=== PATIENT | female | born 1990 | race Two or more races ===

== ENCOUNTER 2023-02-18 13:04 | Outpatient (REF) | payer MEDICAID, SELFPAY | END 2023-02-18 13:05 | disposition home or self-care (01) | LOC: HO.NEURO 13:04 | PROVIDERS: Visit Provider Hospitalist | DX: Z13.89 Encounter for screening for other disorder (principal) | CPT/HCPCS: 95708 ==

== ENCOUNTER 2023-03-25 12:15 | Outpatient (REF) | payer MEDICAID, SELFPAY ==
--- NOTE | 2023-03-25 | EEG_ITS ---
PROCEDURE: 24-hour ambulatory EEG. FINDINGS: The waking background activity consists of low-voltage fast frequencies seen diffusely intermixed with a low-voltage 10-hertz posterior alpha frequency posteriorly. No drowsy or sleep states are noted. Entire 24 hours were not recorded. A total of 146 minutes recording was reviewed. The patient has no notifications. No focal, lateralizing or paroxysmal discharges were seen. IMPRESSION: This limited waking segment of a 24-hour EEG is within normal limits. Due to technical reasons, the entire 24 hours were not recorded. If seizure disorder is strongly suspected, a followup 24-hour ambulatory EEG is recommended. MD DC Marion/JAKE / [id number]
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
== END 2023-03-25 12:16 | disposition home or self-care (01) ==
LOC: HO.NEURO 12:15
PROVIDERS: Visit Provider Hospitalist
DX: S42.124D Nondisplaced fracture of acromial process, right shoulder, subsequent encounter for fracture with routine healing (principal); G40.909 Epilepsy, unspecified, not intractable, without status epilepticus
CPT/HCPCS: 73000; 73030; 95708

== ENCOUNTER 2023-08-14 10:19 | Outpatient (REF) | payer MEDICAID, SELFPAY ==
[2023-08-20 04:29] LABS: HPV 16 RNA NOT DETECTED (NOT DETECTED); HPV mRNA E6/E7 rflx Detected (Not Detected)
== END 2023-08-14 10:20 | disposition home or self-care (01) ==
LOC: HO.LAB 10:19
PROVIDERS: Visit Provider Advanced Practice Midwife
DX: Z01.419 Encounter for gynecological examination (general) (routine) without abnormal findings (principal); N90.810 Female genital mutilation status, unspecified; Z11.3 Encounter for screening for infections with a predominantly sexual mode of transmission; Z20.2 Contact with and (suspected) exposure to infections with a predominantly sexual mode of transmission
CPT/HCPCS: 0353U; 87480; 87510; 87624; 87625; 87660; 88142; 99385

== ENCOUNTER 2023-08-14 10:19 | Outpatient (AMB) | payer MEDICAID, SELFPAY ==
[2023-08-14 10:40] VITALS: BP 118/70; BMI 41.2
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
== END 2023-08-14 11:47 | disposition home or self-care (01) ==
LOC: HO.HWSM 10:19
PROVIDERS: Visit Provider Advanced Practice Midwife
DX: Z01.419 Encounter for gynecological examination (general) (routine) without abnormal findings (principal); N90.810 Female genital mutilation status, unspecified; Z12.4 Encounter for screening for malignant neoplasm of cervix; Z11.3 Encounter for screening for infections with a predominantly sexual mode of transmission
CPT/HCPCS: 99385

== ENCOUNTER 2023-08-15 08:58 | Outpatient (AMB) | payer MEDICAID, SELFPAY ==
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
== END 2023-08-15 09:32 | disposition home or self-care (01) ==
PROVIDERS: Visit Provider Physician Assistant
DX: M79.18 Myalgia, other site (principal)
CPT/HCPCS: 99203

== ENCOUNTER → 2023-08-15 08:58 | Outpatient (BNVA) | payer MEDICAID, SELFPAY | PROVIDERS: Visit Provider Physician Assistant | DX: M79.18 Myalgia, other site (principal) | CPT/HCPCS: 99212 ==

== ENCOUNTER 2023-09-10 10:07 | Outpatient (AMB) | payer MEDICAID, SELFPAY ==
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
== END 2023-09-10 11:32 | disposition home or self-care (01) ==
PROVIDERS: Visit Provider Physical Medicine & Rehabilitation
DX: M79.18 Myalgia, other site (principal); M25.511 Pain in right shoulder
CPT/HCPCS: 99204

== ENCOUNTER → 2023-09-10 10:07 | Outpatient (BNVA) | payer MEDICAID, SELFPAY | PROVIDERS: Visit Provider Physical Medicine & Rehabilitation | DX: M79.18 Myalgia, other site (principal); M25.511 Pain in right shoulder | CPT/HCPCS: 99202 ==

== ENCOUNTER 2024-07-16 10:51 | Outpatient (AMB) | payer MEDICAID, SELFPAY ==
--- NOTE | 2024-07-16 10:54 | MHC.OFFVIS ---
Intake Visit Reasons: New prob - RT ankle sprain, DOI 06/28/24 Intake Note: Dean is a 33 year old female who presents today for a evaluation of her right ankle sprain, DOI 06/29/24. Patient reports slip and fall in her room at night. Patient was given a walking boot and crutches, however patient isn't wearing or using them. She states that her right ankle feels a bit better today. She mentions that she has been putting a little bit of weight on her right side which causes her some sharp pain. Allergies No Known Allergies Allergy (Verified 07/16/24 11:43) HPI HPI New prob - RT ankle sprain, DOI 06/28/24: Details: 33-year-old female who presents in the office today for an evaluation of right ankle sprain. The patient stated she presented to the ED in [place] for her right ankle sprain which occurred on 06/28/24. She was given a walking boot and crutches. While in the office today, the patient reports a slip and fall in her room at night. She mentions her right ankle pain is mildly improved. She was given a walking boot and crutches; however, she is not using them. She reports experiencing sharp pain when she puts some weight on her right side. [facility] Medical History (Updated 07/16/24 @ 12:01 by Karly Domingo) Alcohol dependence Delusional disorder Amenorrhea Hidradenitis Uterine scar from previous surgery 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 Depression Nondisplaced apophyseal fracture of femur Obesity Insomnia Constipation Anxiety disorder Brain injury Female Reproductive History Menstrual Age of Menarche: 11 Review of Systems Const All systems reviewed & are unremarkable except as noted in HPI and below Physical Exam Const General: cooperative, healthy appearing and no acute distress Resp Effort & Inspection: normal respiratory effort and able to speak in complete sentences Cardio Rate: regular rate Peripheral pulses: Peripheral pulses 2+ throughout GI Palpation (GI): Soft to palpation Skin Lesions: no lesions Rashes: no rashes Extrem Other: Right ankle: Normal to inspection. No ecchymosis, erythema, or edema. The patient is able to demonstrate dorsiflexion, plantar flexion, pronation and supination. Negative anterior drawer. Sensation intact. Pedal pulse intact. Assessment & Plan Assessment & Plan (1) Right ankle sprain: Code(s): S93.401A - Sprain of unspecified ligament of right ankle, initial encounter Category: Medical Plan Ms. Clements is a 33-year-old female who presents in the office today for an evaluation of right ankle sprain. The patient stated she presented to the ED in [place] for her right ankle sprain which occurred on 06/28/24. She was given a walking boot and crutches. While in the office today, the patient reports a slip and fall in her room at night. She mentions her right ankle pain is mildly improved. She was given a walking boot and crutches; however, she is not using them. She reports experiencing sharp pain when she puts some weight on her right side. The patient was referred to physical therapy to work on range of motion, strengthening and gait training. Follow-up will be PRN, or sooner if needed. X-rays of the right ankle, which were obtained while in the office today and were reviewed by me, Pham Hayden PA-C, revealed: No acute fracture or dislocation. Patient Instructions: Scribed by Karly Domingo, electromedical equipment repairer, for Pham Hayden PA-C on 07/16/24 at 12:10 pm EST. Coding Level of Care Code Est Pt Level 3 (63817) Diagnoses Right ankle sprain S93.401A
== END 2024-07-16 11:56 | disposition home or self-care (01) ==
PROVIDERS: Visit Provider Physician Assistant
DX: S93.401A Sprain of unspecified ligament of right ankle, initial encounter (principal)
CPT/HCPCS: 99213

== ENCOUNTER 2024-07-16 11:23 | Outpatient (REF) | payer MEDICAID, SELFPAY ==
--- NOTE | ~2024-07-16 | XR_ITS ---
EXAMINATION: XR RIGHT ANKLE CLINICAL INFORMATION: Pain in unspecified ankle and joints of unspecified foot M25.579. COMPARISON: None available TECHNIQUE: AP, lateral, and mortise views of the right ankle. FINDINGS: No fracture. Alignment is anatomic. No erosions. Joint spaces are maintained. Soft tissues are normal. Accessory ossicle near medial malleolus. Cortical irregularity likely an old healed distal fibular fracture. XR/XR ankle RT min 3V IMPRESSION: 1. No acute fracture or dislocation. 2. Cortical irregularity likely due to an old healed distal fibular fracture. Electronically signed by: Pearl Green MD 08/11/2024 09:18 PM SAMANTH[facility] LARSON
--- NOTE | ~2024-07-16 | XR_ITS ---
EXAMINATION: XR LEFT ANKLE CLINICAL INFORMATION: Pain in unspecified ankle and joints of unspecified foot M25.579. COMPARISON: None available TECHNIQUE: AP, lateral, and mortise views of the left ankle. FINDINGS: No fracture. Alignment is anatomic. No erosions. Joint spaces are maintained. Soft tissues are normal. XR/XR ankle LT min 3V IMPRESSION: Normal left ankle. Electronically signed by: Phani Steen MD 08/02/2024 07:46 AM SAMANTHA
== END 2024-07-16 11:24 | disposition home or self-care (01) ==
LOC: HO.HOSX 11:23
PROVIDERS: Visit Provider Physician Assistant
DX: S93.401A Sprain of unspecified ligament of right ankle, initial encounter (principal); M25.579 Pain in unspecified ankle and joints of unspecified foot
CPT/HCPCS: 73610; 99212

== ENCOUNTER 2024-12-24 13:11 | Outpatient (AMB) | payer MEDICAID, SELFPAY ==
--- OUTSIDE RECORDS SUMMARY | 2024-12-24 13:14 | XMS_ITS | Clinical Summary ---
Author Organization [employer] Address [address] [facility] [address] [place] [address] Care Team Providers Care Tailing Machine Operator Name Role Phone Unavailable Primary Care Provider Unavailabl e Allergies No known active allergies Medications atorvastatin (Lipitor) 10 MG tablet Take 10 mg by mouth in the morning. Active acetaminophen (Tylenol) 325 MG tablet Take by mouth. Active sodium phosphate (Fleet) 3.5-9.5 GM/59ML enema Insert into the rectum. Active OLANZapine-FLUo xetine (Symbyax) 12-25 MG capsule Take 1 capsule by mouth in the evening. Active metoprolol tartrate (Lopressor) 25 MG tablet Take by mouth 2 times daily. Active omeprazole (PriLOSEC) [address] capsule Take 20 mg by mouth before breakfast. Do not crush or chew. Active ondansetron (Zofran) 4 MG tablet Take by mouth. Active Social History Tobacco Use Types Packs/Day Years Used Date Smoking Tobacco: Never Assessed Comments Unknown Sex and Gender Information Value Date Recorded Sex Assigned at Female 05/21/2023 8:51 AM EDT Legal Sex Female 8:48 AM EDT Gender Identity Female 05/21/2023 8:51 AM EDT Sexual Orientation Choose not to disclose 2022 8:51 AM EDT Plan of Treatment Health Maintenance Due Date Last Done Comments Dental Oral Exam 1989 Dental Prophylaxis 1989 Dental X-Ray: Full Mouth 1989 Depression Screening 1989 HIV Screening 1989 SDOH Screening 1989 Alcohol/Substance Use Screening 2001 Tobacco Screening 2001 Family Planning (PISQ) 2004 Hepatitis C Screening 2007 DTaP/Tdap/Td Vaccines (1 - Tdap) 2008 Hepatitis B Vaccines (1 of 3 - 19+ 3-dose series) 2008 Pap Smear 2010 Cervical Cancer Screening 2019 HPV/Cotest 2019 COVID-19 Vaccine ( - 2023-2 5 season) 2024 Influenza Vaccine (#1) 2024 Dental X-Ray: Bitewings 05/22/2024 05/21/2023 Zoster Vaccines (1 of 2) 2039 RSV Patients and Pa tients Aged 60 years or older (1 - 1-dose 75+ series) 2064 HIB Vaccines Aged Out No longer eligi ble based on patient's age to complete this topic HPV Vaccines Aged Out No longer eligi ble based on patient's age to complete this topic Hepatitis A Vaccines Aged Out No long er eligible based on patient's age to complete this topic IPV Vaccines Aged Out No longer eligi ble based on patient's age to complete this topic Meningococcal B Vaccine Aged Out No l onger eligible based on patient's age to complete this topic Meningococcal Vaccine Aged Out No lucho richie eligible based on patient's age to complete this topic Pneumococcal Vaccine: Pediat rics (0 to 5 Years) and At-Risk Patients (6 to 49) Years) Aged Out No longer elig ible based on patient's age to complete this topic RSV under 20 months Aged Out No longe r eligible based on patient's age to complete this topic Rotavirus Vaccines Aged Out No longer eligible based on patient's age to complete this topic Procedures Procedure Name Priority Date/Time Associated Diagnosis Comments BITEWING - SINGLE RADIOGRAPHIC IMAGE Routine 05/21/2023 1:00 PM EDT from Last 3 Months or Most Recently Relevant to Health Maintenance Insurance [facility] MEDICAID STAND ADULT
--- OUTSIDE RECORDS SUMMARY | 2024-12-24 13:14 | XMS_ITS | Encounter Summary ---
Author Organization [employer] Address [address] [place] [address] Care Team Providers Care Chef Kitchen Manager Name Role Phone Unavailable Primary Care Provider Unavailabl e Encounter Details Date Type Department Care Team (Late st Contact Info) Description 12/24/2024 Lab Requisition [facility] Lab [address] [facility] [place] [address] Adam Sainz MD [address] [place] [address] Dr [address] [place], [place] Hyperlipidemia, unspecified; Hypo-osmolality and hyponatremia; Obesity, unspecified Social History Tobacco Use Types Packs/Day Years Used Date Smoking Tobacco: Never Assessed Comments Unknown Sex and Gender Information Value Date Recorded Sex Assigned at Not on file Legal Sex Female 8:05 PM EST Gender Identity Not on file Sexual Orientation Not on file documented as of this encounter Plan of Treatment Not on file documented as of this encounter Procedures Procedure Name Priority Date/Time Associated Diagnosis Comments LIPID PANEL WITH REFLEX TO DIRECT LDL Routine 12/24/2024 7:12 AM EDT Hyperlipidemia, unspecified Hypo-osmolality and hyponatremia Obesity, unspecified HEMOGLOBIN A1C Routine 12/24/2024 7:12 AM EDT Hyperlipidemia, unspecified Hypo-osmolality and hyponatremia Obesity, unspecified AMMONIA Routine 12/24/2024 7:12 AM EDT Hyperlipidemia, unspecified Hypo-osmolality and hyponatremia Obesity, unspecified COMPREHENSIVE METABOLIC PANEL Routine 12/24/2024 7:12 AM EDT Hyperlipidemia, unspecified Hypo-osmolality and hyponatremia Obesity, unspecified documented in this encounter Results * Hemoglobin A1c (12/24/2024 7:12 AM EDT) Hemoglobin A1C 6.0 <6.5 % LAB CHEMISTRY METHOD 12/24/2024 12:00 PM EDT [facility] Mean Bld Glu Estim. 126 mg/dL LAB CHEMISTRY METHOD 12/24/2024 12:00 PM EDT [facility] Blood Venous blood specimen / Unknown 12/24/2024 7:12 AM EDT 12/24/2024 7:40 AM EDT us Adam Sainz MD LAB BLOOD ORDERABLES Final Resul t Performing Organization Address [facility] Co de Phone Number [facility] [address] [place] [address], [place] [phone] * (ABNORMAL) Ammonia (12/24/2024 7:12 AM EDT) Ammonia 56(H) 11 - 35 mcmol/L LAB CHEMISTRY METHOD 12/24/2024 8:19 AM EDT [facility] Blood Venous blood specimen / Unknown 12/24/2024 7:12 AM EDT 12/24/2024 7:40 AM EDT us Adam Sainz MD LAB BLOOD ORDERABLES Final Resul t Performing Organization Address [facility] de Phone Number [facility] [address] [place] [address], [place] [phone] * Lipid panel with reflex to direct LDL (12/24/2024 7:12 AM EDT) Cholesterol 141 0 - 200 mg/dL LAB CHEMISTRY METHOD 12/24/2024 8:42 AM EDT [facility] Triglycerides 62 0 - 150 mg/dL LAB CHEMISTRY METHOD 12/24/2024 8:42 AM EDT [facility] HDL 50 >=40 mg/dL LAB CHEMISTRY METHOD 12/24/2024 8:42 AM EDT [facility] LDL Calculated 79 0 - 100 mg/dL LAB CHEMISTRY METHOD 12/24/2024 8:42 AM EDT [facility] VLDL Cholesterol Melvin 12.4 mg/dL LAB CHEMISTRY METHOD 12/24/2024 8:42 AM EDT [facility] Non HDL Chol. (LDL+VLDL) 91 <145 mg/dL LAB CHEMISTRY METHOD 12/24/2024 8:42 AM T [facility] Chol/HDL Ratio 2.8 0.0 - 4.4 LAB CHEMISTRY METHOD 12/24/2024 8:42 AM T [facility] Blood Venous blood specimen / Unknown 12/24/2024 7:12 AM EDT 12/24/2024 7:40 AM EDT us Adam Saniz MD LAB BLOOD ORDERABLES Final Resul t [facility] [address] [place] [address], * (ABNORMAL) Comprehensive metabolic panel (12/24/2024 7:12 AM EDT) Sodium 144 133 - 145 mmol/L LAB CHEMISTRY METHOD 12/24/2024 8:42 AM [facility] Potassium 3.7 3.5 - 5.5 mmol/L LAB CHEMISTRY METHOD 12/24/2024 8:42 AM [facility] Chloride 115(H) 96 - 110 mmol/L LAB CHEMISTRY METHOD 12/24/2024 8:42 AM [facility] CO2 21 21 - 32 mmol/L LAB CHEMISTRY METHOD 12/24/2024 8:42 AM [facility] Anion Gap 8 3 - 11 LAB CHEMISTRY METHOD 12/24/2024 8:42 AM [facility] Glucose 95 70 - 100 mg/dL LAB CHEMISTRY METHOD 12/24/2024 8:42 AM [facility] BUN 6 5 - 25 mg/dL LAB CHEMISTRY METHOD 12/24/2024 8:42 AM [facility] Creatinine 0.61 0.50 - 1.10 mg/dL LAB CHEMISTRY METHOD 12/24/2024 8:42 AM [facility] eGFR 120 >=60 mL/min/1. 73m2 LAB CHEMISTRY METHOD 12/24/2024 8:42 AM [facility] Comment:Calculation based on the Chronic Kidney Disease Epidemiology Collaboration (CKD-EPI) equation refit without adjustment for race. BUN/Creatinine Ratio 9.8 LAB CHEMISTRY METHOD 12/24/2024 8:42 AM [facility] Calcium 8.3(L) 8.5 - 10.5 mg/dL LAB CHEMISTRY METHOD 12/24/2024 8:42 AM [facility] AST (SGOT) 11 10 - 42 unit/L LAB CHEMISTRY METHOD 12/24/2024 8:42 AM [facility] ALT (SGPT) 9(L) 10 - 60 unit/L LAB CHEMISTRY METHOD 12/24/2024 8:42 AM [facility] Alkaline Phosphatase 80 42 - 121 unit/L LAB CHEMISTRY METHOD 12/24/2024 8:42 AM [facility] Total Protein 6.0 6.0 - 8.0 g/dL LAB CHEMISTRY METHOD 12/24/2024 8:42 AM [facility] Albumin 3.0(L) 3.2 - 5.0 g/dL LAB CHEMISTRY METHOD 12/24/2024 8:42 AM [facility] Total Bilirubin 0.2 0.0 - 1.4 mg/dL LAB CHEMISTRY METHOD 12/24/2024 8:42 AM [facility] Blood Venous blood specimen / Unknown 12/24/2024 7:12 AM EDT 12/24/2024 7:40 AM EDT Adam Sainz MD LAB BLOOD ORDERABLES Final Resul t [facility] [address] [place] [address], documented in this encounter Visit Diagnoses Diagnosis Hyperlipidemia, unspecified Hypo-osmolality and hyponatremia Obesity, unspecified documented in this encounter
--- OUTSIDE RECORDS SUMMARY | 2024-12-24 13:14 | XMS_ITS | Encounter Summary ---
Author Organization [employer] Address [address] [place] [address] Care Team Providers Care Funeral Pre Arrangement Counselor Name Role Phone Unavailable Primary Care Provider Unavailabl e Encounter Details Date Type Department Care Team (Late st Contact Info) Description 06/22/2024 Lab Requisition [facility] - Main Lab [address] [facility] [place] [facility] [place] [address] Adam Sainz MD [address] [place] [address] [address] [place], [place] Epilepsy, unspecified, not intractable, without status epilepticus (CMS/HCC V24, CMS/HCC V28); Diffuse traumatic brain injury with loss of consciousness of unspecified duration, sequela (CMS/HCC V24); Hyperlipidemia, unspecified Social History Tobacco Use Types Packs/Day [...] PANEL WITH REFLEX TO DIRECT LDL Routine 06/22/2024 6:46 AM EST Epilepsy, unspecified, not intractable, without status epilepticus (CMS/HCC) Diffuse traumatic brain injury with loss of consciousness of unspecified duration, sequela (CMS/HCC) Hyperlipidemia, unspecified HEMOGLOBIN A1C Routine 06/22/2024 6:46 AM EST Epilepsy, unspecified, not intractable, without status epilepticus (CMS/HCC) Diffuse traumatic brain injury with loss of consciousness of unspecified duration, sequela (CMS/HCC) Hyperlipidemia, unspecified AMMONIA Routine 06/22/2024 6:46 AM EST Epilepsy, unspecified, not intractable, without status epilepticus (CMS/HCC) Diffuse traumatic brain injury with loss of consciousness of unspecified duration, sequela (CMS/HCC) Hyperlipidemia, unspecified VALPROIC ACID LEVEL, TOTAL Routine 06/22/2024 6:46 AM EST Epilepsy, unspecified, not intractable, without status epilepticus (CMS/HCC) Diffuse traumatic brain injury with loss of consciousness of unspecified duration, sequela (CMS/HCC) Hyperlipidemia, unspecified documented in this encounter Results * (ABNORMAL) Lipid panel with reflex to direct LDL (06/22/2024 6:46 AM EST) Cholesterol 205(H) 0 - 200 mg/dL LAB CHEMISTRY METHOD 06/22/2024 8:[address] [facility] Triglycerides 68 0 - 150 mg/dL LAB CHEMISTRY METHOD 06/22/2024 8:18 AM [facility] HDL 57 >=40 mg/dL LAB CHEMISTRY METHOD 06/22/2024 8:[address] [facility] LDL Calculated 134(H) 0 - 100 mg/dL LAB CHEMISTRY METHOD 06/22/2024 8:[address] [facility] VLDL Cholesterol Melvin 13.6 mg/dL LAB CHEMISTRY METHOD 06/22/2024 8:18 AM [facility] Non HDL Chol. (LDL+VLDL) 148(H) <145 mg/dL LAB CHEMISTRY METHOD 06/22/2024 8:[address] [facility] Chol/HDL Ratio 3.6 0.0 - 4.4 LAB CHEMISTRY METHOD 06/22/2024 8:18 AM [facility] Blood Venous blood specimen / Unknown 06/22/2024 6:46 AM EST 06/22/2024 7:30 AM EST us Adam Sainz MD LAB BLOOD ORDERABLES Final Resul t [facility] [address] [place] [address], * (ABNORMAL) Valproic acid level, total (06/22/2024 6:46 AM EST) Valproic Acid, Total <3(L) 50 - 100 mcg/mL LAB CHEMISTRY METHOD 06/22/2024 8:[address] [facility] Blood Venous blood specimen / Unknown 06/22/2024 6:46 AM EST 06/22/2024 7:30 AM EST us Adam Sainz MD LAB BLOOD ORDERABLES Final Resul t Performing Organization Address [facility]/ZIP Co de Phone Number [facility] [address] [place] [address], [place] [phone] * Hemoglobin A1c (06/22/2024 6:46 AM EST) Hemoglobin A1C 6.1 % 06/22/2024 1:[address] [facility] Mean Bld Glu Estim. 128 mg/dL 06/22/2024 1:[address] [facility] Blood Venous blood specimen / Unknown 06/22/2024 6:46 AM EST 06/22/2024 7:30 AM EST us Adam Sainz MD LAB BLOOD ORDERABLES Final Resul t Performing Organization Address City/[facility]/ZIP Co de Phone Number [facility] [address] [place] [address], [place] [phone] * Ammonia (06/22/2024 6:46 AM EST) Ammonia 34 11 - 35 mcmol/L LAB CHEMISTRY METHOD 06/22/2024 7:[address] [facility] Blood Venous blood specimen / Unknown 06/22/2024 6:46 AM EST 06/22/2024 7:30 AM EST us Adam Sainz MD LAB BLOOD ORDERABLES Final Resul t [facility] ([facility] [address] [place] [address], documented in this encounter Visit Diagnoses Diagnosis Epilepsy, unspecified, not intractable, without status epilepticus ([facility] V24, [facility] V28) Diffuse traumatic brain injury with loss of consciousness of unspecified duration, sequela ([facility] V24) Hyperlipidemia, unspecified documented in this encounter
--- OUTSIDE RECORDS SUMMARY | 2024-12-24 13:14 | XMS_ITS | Clinical Summary ---
Author Organization [facility] Address [address] [place] [address] Phone Care Team Providers Care Floor Covering Printer Assistant Name Role Phone Unavailable Primary Care Provider Unavailabl e Encounters Date Type Department Care Team Description 12/24/2024 Lab Requisition [facility] [address] [place] [address] Adam Sainz MD Hyperlipidemia, unspecified; Hypo-osmolality and hyponatremia; Obesity, unspecified 11/19/2024 Lab Requisition [facility] [address] [place] [address] Adam Sainz MD Hypothyroidism, unspecified from Last 3 Months Social History Tobacco Use Types Packs/Day Years Used Date Smoking Tobacco: Never Assessed Comments Unknown Sex and Gender Information Value Date Recorded Sex Assigned at Not on file Legal Sex Female 8:05 PM EST Gender Identity Not on file Sexual Orientation Not on file Plan of Treatment Health Maintenance Due Date Last Done Comments DTaP,Tdap,and Td Vaccines (1 - Tdap) 2008 Hepatitis B Vaccines (1 of 3 - 19+ 3-dose series) 2008 Cervical Cancer Screening: P ap Smear 2010 Depression Screening 09/04/2023 HIV Screening 09/04/2023 Hepatitis C Screening 09/04/2023 Social Influencers of Health Screening 09/04/2023 COVID-19 Vaccine ( - 2023-2 5 season) 2024 Influenza Vaccine (Season Ended) 2025 Cholesterol Screening (Lipid Panel) 12/24/2029 12/24/2024, 06/22/2024 HIB Vaccines Aged Out No longer eligi [...] on patient's age to complete this topic MMR Vaccines Aged Out No longer eligi ble based on patient's age to complete this topic Meningococcal ACWY Vaccine Aged Out N o longer eligible based on patient's age to complete this topic Meningococcal B Vaccine Aged Out No l onger eligible based on patient's age to complete this topic Pneumococcal Vaccine: Pediatrics (0 to 5 Years) and At-Risk Patients (6 to 64 Years) Aged Out No longer eligible b ased on patient's age to complete this topic RSV Immunization Patients Under 20 months Aged Out No longer eligible b ased on patient's age to complete this topic Varicella Vaccines Aged Out No longer eligible based on patient's age to complete this topic Procedures Procedure Name Priority Date/Time Associated Diagnosis Comments HEMOGLOBIN A1C Routine 12/24/2024 7:12 AM EDT Hyperlipidemia, unspecified Hypo-osmolality and hyponatremia Obesity, unspecified AMMONIA Routine 12/24/2024 7:12 AM EDT Hyperlipidemia, unspecified Hypo-osmolality and hyponatremia Obesity, unspecified LIPID PANEL WITH REFLEX TO DIRECT LDL Routine 12/24/2024 7:12 AM EDT Hyperlipidemia, unspecified Hypo-osmolality and hyponatremia Obesity, unspecified COMPREHENSIVE METABOLIC PANEL Routine 12/24/2024 7:12 AM EDT Hyperlipidemia, unspecified Hypo-osmolality and hyponatremia Obesity, unspecified THYROXINE FREE Routine 11/19/2024 5:55 PM EDT Hypothyroidism, unspecified THYROID STIMULATING HORMONE Routine 11/19/2024 5:55 PM EDT Hypothyroidism, unspecified from Last 3 Months Results * Lipid panel with reflex to direct LDL (12/24/2024 7:12 AM EDT) Cholesterol 141 0 - 200 mg/dL LAB CHEMISTRY METHOD 12/24/2024 8:42 AM EDT [facility] Triglycerides 62 0 - 150 mg/dL LAB CHEMISTRY METHOD 12/24/2024 8:42 AM EDT [facility] HDL 50 >=40 mg/dL LAB CHEMISTRY METHOD 12/24/2024 8:42 AM EDT [facility] LDL Calculated 79 0 - 100 mg/dL LAB CHEMISTRY METHOD 12/24/2024 8:42 AM EDT [facility] VLDL Cholesterol Melvin 12.4 mg/dL LAB CHEMISTRY METHOD 12/24/2024 8:42 AM EDT [facility] Non HDL Chol. (LDL+VLDL) 91 <145 mg/dL LAB CHEMISTRY METHOD 12/24/2024 8:42 AM EDT [facility] Chol/HDL Ratio 2.8 0.0 - 4.4 LAB CHEMISTRY METHOD 12/24/2024 8:42 AM EDT [facility] Blood Venous blood specimen / Unknown 12/24/2024 7:12 AM EDT 12/24/2024 7:40 AM EDT us Adam Sainz MD LAB BLOOD ORDERABLES Final Resul t Performing Organization Address [facility]/ZIP Co de Phone Number [facility] [address] [place] [address], [place] [phone] * Hemoglobin A1c (12/24/2024 7:12 AM EDT) Hemoglobin A1C 6.0 <6.5 % LAB CHEMISTRY METHOD 12/24/2024 12:00 PM EDT [facility] Mean Bld Glu Estim. 126 mg/dL LAB CHEMISTRY METHOD 12/24/2024 12:00 PM EDT [facility] Blood Venous blood specimen / Unknown 12/24/2024 7:12 AM EDT 12/24/2024 7:40 AM EDT us Adam Sainz MD LAB BLOOD ORDERABLES Final Resul t Performing Organization Address City/[facility]/ZIP Co de Phone Number [facility] [address] [place] [address], [place] [phone] * (ABNORMAL) Ammonia (12/24/2024 7:12 AM EDT) Pathologist [facility] Ammonia 56(H) 11 - 35 mcmol/L LAB CHEMISTRY METHOD 12/24/2024 8:19 AM [facility] Blood Venous blood specimen / Unknown 12/24/2024 7:12 AM EDT 12/24/2024 7:40 AM EDT us Adam Sainz MD LAB BLOOD ORDERABLES Final Resul t [facility] [address] [place] [address], [place] [phone] * (ABNORMAL) Comprehensive metabolic panel (12/24/2024 7:12 AM EDT) [facility] Sodium 144 133 - 145 mmol/L LAB CHEMISTRY METHOD 12/24/2024 8:42 AM [facility] Potassium 3.7 3.5 - 5.5 mmol/L LAB CHEMISTRY METHOD 12/24/2024 8:42 AM [facility] Chloride 115(H) 96 - 110 mmol/L LAB CHEMISTRY METHOD 12/24/2024 8:42 AM [facility] CO2 21 21 - 32 mmol/L LAB CHEMISTRY METHOD 12/24/2024 8:42 AM [facility] Anion Gap 8 3 - 11 LAB CHEMISTRY METHOD 12/24/2024 8:42 AM [facility] Glucose 95 70 - 100 mg/dL LAB CHEMISTRY METHOD 12/24/2024 8:42 AM [facility] BUN 6 5 - 25 mg/dL LAB CHEMISTRY METHOD 12/24/2024 8:42 AM [facility] Creatinine 0.61 0.50 - 1.10 mg/dL LAB CHEMISTRY METHOD 12/24/2024 8:42 AM [facility] eGFR 120 >=60 mL/min/1. 73m2 LAB CHEMISTRY METHOD 12/24/2024 8:42 AM [facility] Comment:Calculation based on the Chronic Kidney Disease Epidemiology Collaboration (CKD-EPI) equation refit without adjustment for race. BUN/Creatinine Ratio 9.8 LAB CHEMISTRY METHOD 12/24/2024 8:42 AM [facility] Calcium 8.3(L) 8.5 - 10.5 mg/dL LAB CHEMISTRY METHOD 12/24/2024 8:42 AM [facility] AST (SGOT) 11 10 - 42 unit/L LAB CHEMISTRY METHOD 12/24/2024 8:42 AM [facility] ALT (SGPT) 9(L) 10 - 60 unit/L LAB CHEMISTRY METHOD 12/24/2024 8:42 AM [facility] Alkaline Phosphatase 80 42 - 121 unit/L LAB CHEMISTRY METHOD 12/24/2024 8:42 AM [facility] Total Protein 6.0 6.0 - 8.0 g/dL LAB CHEMISTRY METHOD 12/24/2024 8:42 AM [facility] Albumin 3.0(L) 3.2 - 5.0 g/dL LAB CHEMISTRY METHOD 12/24/2024 8:42 AM [facility] Total Bilirubin 0.2 0.0 - 1.4 mg/dL LAB CHEMISTRY METHOD 12/24/2024 8:42 AM [facility] Blood Venous blood specimen / Unknown 12/24/2024 7:12 AM EDT 12/24/2024 7:40 AM EDT us Adam Sainz MD LAB BLOOD ORDERABLES Final Resul t [facility] [address] [place] [address], * Thyroid stimulating hormone (11/19/2024 5:55 PM EDT) TSH 1.46 0.40 - 4.00 mcIU/mL LAB CHEMISTRY METHOD 11/19/2024 8:00 PM EDT [facility] Blood Venous blood specimen / Unknown 11/19/2024 5:55 PM EDT 11/19/2024 6:45 PM EDT us Adam Sainz MD LAB BLOOD ORDERABLES Final Resul t Performing Organization Address City/[facility]/ZIP Co de Phone Number [facility] [address] [place] [address], [place] [phone] * Thyroxine free (11/19/2024 5:55 PM EDT) Free T4 0.84 0.70 - 1.80 ng/dL LAB CHEMISTRY METHOD 11/19/2024 8:00 PM EDT [facility] Blood Venous blood specimen / Unknown 11/19/2024 5:55 PM EDT 11/19/2024 6:45 PM EDT us Adam Sainz MD LAB BLOOD ORDERABLES Final Resul t Performing Organization Address City/[facility]/ZIP Co de Phone Number [facility] [address] [place] [address], [place] [phone] from Last 3 Months Insurance MEDICAID - [place]
--- OUTSIDE RECORDS SUMMARY | 2024-12-24 13:14 | XMS_ITS | Encounter Summary ---
Author Organization [facility] Address [address] [place] [address] Care Team Providers Care Foiling Machine Operator Name Role Phone Unavailable Primary Care Provider Unavailabl e Encounter Details Date Type Department Care Team (Late st Contact Info) Description 11/19/2024 Lab Requisition [facility] [address] [place] [address] Adam Sainz MD [address] [place] [address] Dr [address] [place], [place] Hypothyroidism, unspecified Social History Tobacco Use Types Packs/Day [...] Procedure Name Priority Date/Time Associated Diagnosis Comments THYROID STIMULATING HORMONE Routine 11/19/2024 5:55 PM EDT Hypothyroidism, unspecified THYROXINE FREE Routine 11/19/2024 5:55 PM EDT Hypothyroidism, unspecified documented in this encounter Results * Thyroxine free (11/19/2024 5:55 PM EDT) Free T4 0.84 0.70 - 1.80 ng/dL LAB CHEMISTRY METHOD 11/19/2024 8:00 PM EDT [facility] Blood Venous blood specimen / Unknown 11/19/2024 5:55 PM EDT 11/19/2024 6:45 PM EDT us Adam Sainz MD LAB BLOOD ORDERABLES Final Resul t [facility] [address] [place] [address], [place] [phone] * Thyroid stimulating hormone (11/19/2024 5:55 PM EDT) TSH 1.46 0.40 - 4.00 mcIU/mL LAB CHEMISTRY METHOD 11/19/2024 8:00 PM EDT [facility] Blood Venous blood specimen / Unknown 11/19/2024 5:55 PM EDT 11/19/2024 6:45 PM EDT us Adam Sainz MD LAB BLOOD ORDERABLES Final Resul t [facility] [address] [place] [address], [place] [phone] documented in this encounter Visit Diagnoses Diagnosis Hypothyroidism, unspecified documented in this encounter
--- OUTSIDE RECORDS SUMMARY | 2024-12-24 13:14 | XMS_ITS | Encounter Summary ---
Author Organization [facility] Address [address] [place] [address] Care Team Providers Care Professor Of Biblical Studies Name Role Phone Unavailable Primary Care Provider Unavailabl e Encounter Details Date Type Department Care Team (Late st Contact Info) Description 09/13/2024 Lab Requisition [facility] [address] [place] [address] Adam Sainz MD [address] [place] [address] [address] [place], [place] Encounter for other specified special examinations Social History Tobacco Use Types Packs/Day Years [...] Associated Diagnosis Comments THYROID STIMULATING HORMONE Routine 09/13/2024 7:17 AM EST Encounter for other specified special examinations THYROXINE FREE Routine 09/13/2024 7:17 AM EST Encounter for other specified special examinations HEMOGLOBIN A1C Routine 09/13/2024 7:17 AM EST Encounter for other specified special examinations documented in this encounter Results * Thyroid stimulating hormone (09/13/2024 7:17 AM EST) TSH 1.48 0.40 - 4.00 mcIU/mL LAB CHEMISTRY METHOD 09/13/2024 8:[address] [facility] Blood Venous blood specimen / Unknown 09/13/2024 7:17 AM EST 09/13/2024 8:02 AM EST us Adam Sainz MD LAB BLOOD ORDERABLES Final Resul t Performing Organization Address [place] Co de Phone Number [facility] [address] [place] [address], * Thyroxine free (09/13/2024 7:17 AM EST) Free T4 1.04 0.70 - 1.80 ng/dL LAB CHEMISTRY METHOD 09/13/2024 8:44 AM EST [facility] Blood Venous blood specimen / Unknown 09/13/2024 7:17 AM EST 09/13/2024 8:02 AM EST us Adam Sainz MD LAB BLOOD ORDERABLES Final Resul t Performing Organization Address [facility] de Phone Number [facility] [address] [place] [address], [place] [phone] * Hemoglobin A1c (09/13/2024 7:17 AM EST) [facility] Hemoglobin A1C 5.7 <6.5 % LAB CHEMISTRY METHOD 09/13/2024 12:02 PM EST [facility] Mean Bld Glu Estim. 117 mg/dL LAB CHEMISTRY METHOD 09/13/2024 12:02 PM EST [facility] Blood Venous blood specimen / Unknown 09/13/2024 7:17 AM EST 09/13/2024 8:02 AM EST us Adam Sainz MD LAB BLOOD ORDERABLES Final Resul t Performing Organization Address [place] Co de Phone Number [facility] [address] [place] [address], documented in this encounter Visit Diagnoses Diagnosis Encounter for other specified special examinations documented in this encounter
[2024-12-24 13:19] VITALS: BP 118/70; BMI 37.4
--- NOTE | 2024-12-24 13:19 | MHC.OFFVIS ---
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 Intake Note: c/o of vaginal itch x 1 week Orange Picking Supervisor Required: No Information Interpreted: non-clinical & clinical Studio Camera Operator: Studio Camera Operator Present Accompanied by: Employee Allergies No Known Allergies Allergy (Verified 12/24/24 13:20) Medication List - Last Reconciled 12/24/24 by Monica Thurman CNM acetaminophen 650 mg PO Q4H PRN [atorvastatin calcium PO BEDTIME] carboxymethylcellulose sodium 0.5% (Refresh Tears) 1 drp ophthalmic (eye) BID fluoxetine 20 mg PO DAILY ibuprofen 400 mg PO Q8H lactulose 20 grams PO BID levothyroxine 75 mcg PO DAILY metoprolol succinate ER 25 mg PO BID naltrexone microspheres ER 380 mg IM Q4W omeprazole 20 mg PO DAILY ondansetron HCl 4 mg PO Q8H polyethylene glycol 3350 (Miralax) 17 grams PO DAILY quetiapine 300 mg PO BEDTIME rifaximin 550 mg PO BID sennosides (senna) 8.6 mg PO BID sodium phosphates 19-7 gram/118 mL (Fleet Enema) [address] DAILY Is last menstrual period known: Yes HPI HPI 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 She has not been sexually active in a while she has been living there for 3 years. She does not need control right now her periods have become irregular. She used to be on the shot for control but isn't on anything now because she does not need it. She has also had some itching at the bottom of her vagina she keeps herself very very clean. She had a light 3 day period This week. 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 she had gained a lot of weight in the last year but she has started really watching what she eats and stopped eating as much Mongolian food as she was ordering in, and is starting to lose some weight now. She is frustrated because she says she does not have a primary care provider and also she would like to see a ssrs report developer to talk about repairing her genital mutilation. When she lived in the [facility] was her place where she would go and she has a intention of returning back but she does not know when she will be going back. She voiced that at some point she did want to speak to a ssrs report developer about her genital mutilation. 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 Depression Nondisplaced apophyseal fracture of femur Obesity Insomnia Constipation Anxiety disorder Brain injury Surgical History (Updated 12/24/24 @ 13:27 by Estefani Mireles CMA) Hx of brain surgery Hx of cholecystectomy Family History (Updated 12/24/24 @ 13:28 by Estefani Mireles CMA) Mother Mental and behavioral problem Social History Household Members Other:: [facility] Alcohol intake: former Patient Tobacco Use Status: Never used Tobacco Current occupational status: disabled Sexual orientation: Straight/Heterosexual Gender identity: Female Female Reproductive History Menstrual Age of Menarche: 11 Total pregnancies: 5 Full term: 3 Number of Living Children: 3 Ab spontaneous: 2 Date of last pap smear: 08/15/23 History of abnormal pap smear: Yes (HPV +) Physical Exam Vital Signs: BMI result Body Mass Index 37.4 Const Other: Adipose tissue noted patient has lost weight since last year however General: healthy appearing, comfortable, no acute distress, well developed and alert Nutritional Appearance: average body habitus and obese Orientation/consciousness: patient oriented x3 Limitations: no limitations HEENT Head: Yes normocephalic Neck Neck: Yes normal visual inspection Chest Chest palpation & inspection: normal inspection of the chest Breast/axilla inspection: normal inspection of the breasts and normal inspection of the axillae Breast/axilla palpation: normal palpation of the breasts and normal palpation of the axillae Resp Effort & Inspection: normal respiratory effort GI Inspection: Yes normal to inspection, No Abdominal wall edema and No distended Palpation (GI): Soft to palpation and nontender Other: External female anatomy is scarred from female genital mutilation with irregular tissues stretched over urethra essentially covering it. Clitoris appears to be absent with scarring; vagina is pink and moist healthy appearing clear mucosa pink normal healthy appearing clear mucus cervix appears nulliparous pink smooth healthy appearing cervix long close thick mobile nontender uterus nontender patient nontender all over. good involuntary tightening of muscles General: Yes bladder normal to palpation External Female Exam: normal external appearance and normal appearance of the urethra Speculum Exam - Vagina: normal appearance of the vagina, normal palpation and normal vaginal discharge Speculum Exam - Cervix: normal appearance of the cervix, normal palpation and nontender Bimanual exam- vagina & uterus: normal bimanual exam, normal palpation, uterine size normal, bladder normal to palpation, consistency normal, normal palpation, uterine mobility normal, uterine shape normal, No Cervical tenderness present, non-tender and no cervical motion tenderness Bimanual Exam- Adnexa, other: normal adnexae, no masses, normal and No adnexal tenderness Female genitals images: 1. Irregular scarring overlying female anatomy including absence of clitoris scar tissue stretched irregularly from labia to labia overlying structures such as urethra. Neuro General: patient oriented x3 Results Reviewed Results Reviewed: brenda: Dean Clements Age/Sex: 33/F Attending: Monica Thurman CNM : 1990 Submitted by: Monica Thurman CNM Copies to: Physician,Unknown MR #: [id number] Status: DEP REF Collected: 08/14/23 Location: .LAB Received: 08/15/23 Interpretation General Category: Negative for intraepithelial lesion/malignancy. Adequacy: Endocervical component present. Interpretation: Inflammation with associated cellular changes. HPV mRNA E6/E7: DETECTED This assay detects E6/E7 viral messenger RNA (mRNA) from 14 high-risk HPV types (16, 18, 31, 33, 35, 39, 45, 51, 52, 56, 58, 59, 66, 68) HPV Type 16 RNA: Not Detected HPV Type 18/45 RNA: Not Detected HPV testing performed by [facility], [place], [place]. See reference laboratory portion of the EMR for entire report. This case was reviewed intradepartmentally. Clinical Information LMP: 2 months ago Previous PAP test: Unknown date/findings Material Received ThinPrep-Cervical Copies To Monica Thurman [address] [place] [address] Physician,Unknown , Electronically Signed By: Gordon Wright MD 08/27/23 4548 The Pap Test is a screening procedure with the inherent possibility of both false negative and false positive results. Results should be Patient: Dean Clements Age/Sex: 33/F MR#: [id number] Page 1 of 2 Gynecologic Cytology CY24-34 interpreted in the context of historic and current clinical findings. Reliability of the Pap Test is enhanced by performing the test on a regular repetitive basis. 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 Code(s): N90.810 - Female genital mutilation status, unspecified Category: Medical (4) Encounter for screening examination for sexually transmitted disease: Code(s): Z11.3 - Encounter for screening for infections with a predominantly sexual mode of transmission Category: Medical (5) Urinary frequency: Comment: Patient has a occasional urinary frequency and voiding small amounts anatomy is scarred from female mutilation covering urethra. Code(s): R35.0 - Frequency of micturition Category: Medical (6) Vaginal itching: Comment: Occasional mucosa looks very healthy not consistent with any infectious process we will provide Monistat cream for use PRN with vaginal itching in case it is a mild yeast. Code(s): N89.8 - Other specified noninflammatory disorders of vagina Category: Medical (7) Menstrual periods irregular: Comment: I recommend the patient call if she ever misses 3 periods... Code(s): N92.6 - Irregular menstruation, unspecified Category: Medical Plan Discussed with the patient her frustration over not knowing who her primary care provider is discussed that it must be somebody connected with her care facility. Discussed that that is much better place to investigate any ongoing issues such as urinary tract infections when they come and go. Her symptoms are not very apparent today but were more so last week she does think they get a little bit better with drinking more water she is trying very hard to eat well. Discussed that it would be very challenging to really interpret a clean-catch urine in the the anatomy from her female genital mutilation over lies her urethra almost completely and their pockets of skin overlying structures. I am placing a referral to [facility] urogynecology to see if they have any insights that could offer for her. In the meantime I am offering prescription for Monistat cream that she can use p.r.n. when she needs it for vaginal itching she keeps herself very very clean and I applauded her excellent hygiene I had her look with a mirror at her anatomy and discussed the concerns that I have she is very aware herself of the mutilation that was done to her. Pap smear was done we will await the results to see if the HPV is still present or if there any other changes. STI testing was done as routine though she says she has not had sex in a long time. The patient voiced as she was upset was me for having written in the report that needs to go back to her institution about her female genital mutilation I explained that it was in the medical record and since I was referring her I needed to explain why I was and I apologized to her. Orders: Orders CT NG by PCR Today Z12.4 - Encounter for screening for malignant neoplasm of cervix Bacterial Vaginosis Panel Today Z12.4 - Encounter for screening for malignant neoplasm of cervix Pap Smear Today Z12.4 - Encounter for screening for malignant neoplasm of cervix Referrals Urogynecology Referral N90.810 - Female genital mutilation status, unspecified, R35.0 - Frequency of micturition, Z01.419 - Encounter for gynecological examination (general) (routine) without abnormal findings, Z11.3 - Encounter for screening for infections with a predominantly sexual mode of transmission, Z12.4 - Encounter for screening for malignant neoplasm of cervix Medications: New miconazole nitrate 2% (Miconazole-7) Patient may use when she perceives that she has vaginal itching she may use it internally if she has a lots of very severe itching and discharge or just externally to the spot where she is itchy she may use it PRN. 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
== END 2024-12-24 15:03 | disposition home or self-care (01) ==
LOC: HO.HWS 13:11
PROVIDERS: Visit Provider Advanced Practice Midwife
DX: Z01.419 Encounter for gynecological examination (general) (routine) without abnormal findings (principal); N90.810 Female genital mutilation status, unspecified; R35.0 Frequency of micturition; N89.8 Other specified noninflammatory disorders of vagina; N92.6 Irregular menstruation, unspecified
CPT/HCPCS: 99395; 99459

== ENCOUNTER 2024-12-24 13:11 | Outpatient (REF) | payer MEDICAID, SELFPAY ==
--- OUTSIDE RECORDS SUMMARY | 2024-12-24 15:06 | XMS_ITS | Encounter Summary ---
Author Organization [employer] Address [address] [place] [address] Care Team Providers Care Franchise Sales Representative Name Role Phone Unavailable Primary Care Provider Unavailabl e Encounter Details Date Type Department Care Team (Late st Contact Info) Description 06/22/2024 Lab Requisition [facility] [address] [facility] [place] [address] Adam Sainz MD [address] [place] [address] [address] [place], [place] Epilepsy, unspecified, not intractable, without status [...] LAB CHEMISTRY METHOD 06/22/2024 8:18 AM EST [facility] Triglycerides 68 0 - 150 mg/dL LAB CHEMISTRY METHOD 06/22/2024 8:18 AM [facility] HDL 57 >=40 mg/dL LAB CHEMISTRY METHOD 06/22/2024 8:18 AM EST [facility] LDL Calculated 134(H) 0 - 100 mg/dL LAB CHEMISTRY METHOD 06/22/2024 8:18 AM EST [facility] VLDL Cholesterol Melvin 13.6 mg/dL LAB CHEMISTRY METHOD 06/22/2024 8:18 AM [facility] Non HDL Chol. (LDL+VLDL) 148(H) <145 mg/dL LAB CHEMISTRY METHOD 06/22/2024 8:18 AM EST [facility] Chol/HDL Ratio 3.6 0.0 - 4.4 LAB CHEMISTRY METHOD 06/22/2024 8:18 AM [facility] Blood Venous blood specimen / Unknown 06/22/2024 6:46 AM EST 06/22/2024 7:30 AM EST us Adam Sainz MD LAB BLOOD ORDERABLES Final Resul t [facility] [address] [place] [address], * (ABNORMAL) Valproic acid level, total (06/22/2024 6:46 AM EST) Valproic Acid, Total <3(L) 50 - 100 mcg/mL LAB CHEMISTRY METHOD 06/22/2024 8:20 AM EST [facility] Blood Venous blood specimen / Unknown 06/22/2024 6:46 AM EST 06/22/2024 7:30 AM EST us Adam Sainz MD LAB BLOOD ORDERABLES Final Resul t Performing Organization Address [facility]/ZIP Co de Phone Number [facility] [address] [place] [address], [place] [phone] * Hemoglobin A1c (06/22/2024 6:46 AM EST) Hemoglobin A1C 6.1 % 06/22/2024 1:37 PM EST [facility] Mean Bld Glu Estim. 128 mg/dL 06/22/2024 1:37 PM EST [facility] Blood Venous blood specimen / Unknown 06/22/2024 6:46 AM EST 06/22/2024 7:30 AM EST us Adam Sainz MD LAB BLOOD ORDERABLES Final Resul t Performing Organization Address [place]/[facility]/ZIP Co de Phone Number [facility] [address] [place] [address], [place] [phone] * Ammonia (06/22/2024 6:46 AM EST) Ammonia 34 11 - 35 mcmol/L LAB CHEMISTRY METHOD 06/22/2024 7:52 AM EST [facility] Blood Venous blood specimen / Unknown 06/22/2024 6:46 AM EST 06/22/2024 7:30 AM EST us Adam Sainz MD LAB BLOOD ORDERABLES Final Resul t [facility] [address] [place] [address], documented in this encounter Visit Diagnoses Diagnosis Epilepsy, unspecified, not intractable, without status epilepticus ([facility] V24, [facility] V28) Diffuse traumatic brain injury with loss of consciousness of unspecified duration, sequela ([facility] V24) Hyperlipidemia, unspecified documented in this encounter
--- OUTSIDE RECORDS SUMMARY | 2024-12-24 15:06 | XMS_ITS | Clinical Summary ---
Author Organization [address] [facility] Address [address] [place] [address] Phone Care Team Providers Care Air Quality Engineer Name Role Phone Unavailable Primary Care Provider Unavailabl e Encounters Date Type Department Care Team Description 12/24/2024 Lab Requisition [facility] Lab [address] [place] [address] Adam Sainz MD Hyperlipidemia, unspecified; Hypo-osmolality and hyponatremia; Obesity, unspecified 11/19/2024 Lab Requisition [facility] Lab [address] [place] [address] Adam Sainz MD Hypothyroidism, unspecified [...] LAB CHEMISTRY METHOD 12/24/2024 8:42 AM EDT [facility] Triglycerides 62 0 - 150 mg/dL LAB CHEMISTRY METHOD 12/24/2024 8:42 AM EDT [facility] HDL 50 >=40 mg/dL LAB CHEMISTRY METHOD 12/24/2024 8:42 AM EDT [facility] LDL Calculated 79 0 - 100 mg/dL LAB CHEMISTRY METHOD 12/24/2024 8:42 AM EDT [facility] VLDL Cholesterol Melvin 12.4 mg/dL LAB CHEMISTRY METHOD 12/24/2024 8:42 AM EDT [facility] Non HDL Chol. (LDL+VLDL) 91 <145 mg/dL LAB CHEMISTRY METHOD 12/24/2024 8:42 AM EDT [facility] Chol/HDL Ratio 2.8 0.0 - 4.4 LAB CHEMISTRY METHOD 12/24/2024 8:42 AM EDT [facility] Blood Venous blood specimen / Unknown 12/24/2024 7:12 AM EDT 12/24/2024 7:40 AM EDT us Adam Sainz MD LAB BLOOD ORDERABLES Final Resul t Performing Organization Address [facility]/ZIP Co de Phone Number [facility] [address] [place] [address], [place] [phone] * Hemoglobin A1c (12/24/2024 7:12 AM EDT) Hemoglobin A1C 6.0 <6.5 % LAB CHEMISTRY METHOD 12/24/2024 12:00 PM EDT [facility] Mean Bld Glu Estim. 126 mg/dL LAB CHEMISTRY METHOD 12/24/2024 12:00 PM EDT [facility] Blood Venous blood specimen / Unknown 12/24/2024 7:12 AM EDT 12/24/2024 7:40 AM EDT us Adam Sainz MD LAB BLOOD ORDERABLES Final Resul t Performing Organization Address City/[facility]/ZIP Co de Phone Number [facility] [address] [place] [address], [place] [phone] * (ABNORMAL) Ammonia (12/24/2024 7:12 AM EDT) Pathologist [facility] Ammonia 56(H) 11 - 35 mcmol/L LAB CHEMISTRY METHOD 12/24/2024 8:19 AM [facility] Blood Venous blood specimen / Unknown 12/24/2024 7:12 AM EDT 12/24/2024 7:40 AM EDT us Adam Sainz MD LAB BLOOD ORDERABLES Final Resul t [facility] [address] [place] [address], [place] [phone] * (ABNORMAL) Comprehensive metabolic panel (12/24/2024 7:12 AM EDT) [facility] Sodium 144 133 - 145 mmol/L LAB CHEMISTRY METHOD 12/24/2024 8:42 AM [facility] Potassium 3.7 3.5 - 5.5 mmol/L LAB CHEMISTRY METHOD 12/24/2024 8:42 AM [facility] Chloride 115(H) 96 - 110 mmol/L LAB CHEMISTRY METHOD 12/24/2024 8:42 AM [facility] CO2 21 21 - 32 mmol/L LAB CHEMISTRY METHOD 12/24/2024 8:42 AM [facility] Anion Gap 8 3 - 11 LAB CHEMISTRY METHOD 12/24/2024 8:42 AM [facility] Glucose 95 70 - 100 mg/dL LAB CHEMISTRY METHOD 12/24/2024 8:42 AM [facility] BUN 6 5 - 25 mg/dL LAB CHEMISTRY METHOD 12/24/2024 8:42 AM [facility] Creatinine 0.61 0.50 - 1.10 mg/dL LAB CHEMISTRY METHOD 12/24/2024 8:42 AM [facility] eGFR 120 >=60 mL/min/1. 73m2 LAB CHEMISTRY METHOD 12/24/2024 8:42 AM [facility] Comment:Calculation based on the Chronic Kidney Disease Epidemiology Collaboration (CKD-EPI) equation refit without adjustment for race. BUN/Creatinine Ratio 9.8 LAB CHEMISTRY METHOD 12/24/2024 8:42 AM [facility] Calcium 8.3(L) 8.5 - 10.5 mg/dL LAB CHEMISTRY METHOD 12/24/2024 8:42 AM [facility] AST (SGOT) 11 10 - 42 unit/L LAB CHEMISTRY METHOD 12/24/2024 8:42 AM [facility] ALT (SGPT) 9(L) 10 - 60 unit/L LAB CHEMISTRY METHOD 12/24/2024 8:42 AM [facility] Alkaline Phosphatase 80 42 - 121 unit/L LAB CHEMISTRY METHOD 12/24/2024 8:42 AM [facility] Total Protein 6.0 6.0 - 8.0 g/dL LAB CHEMISTRY METHOD 12/24/2024 8:42 AM [facility] Albumin 3.0(L) 3.2 - 5.0 g/dL LAB CHEMISTRY METHOD 12/24/2024 8:42 AM [facility] Total Bilirubin 0.2 0.0 - 1.4 mg/dL LAB CHEMISTRY METHOD 12/24/2024 8:42 AM [facility] Blood Venous blood specimen / Unknown 12/24/2024 7:12 AM EDT 12/24/2024 7:40 AM EDT us Adam Sainz MD LAB BLOOD ORDERABLES Final Resul t [facility] [address] [place] [address], * Thyroid stimulating hormone (11/19/2024 5:55 PM EDT) TSH 1.46 0.40 - 4.00 mcIU/mL LAB CHEMISTRY METHOD 11/19/2024 8:00 PM EDT [facility] Blood Venous blood specimen / Unknown 11/19/2024 5:55 PM EDT 11/19/2024 6:45 PM EDT us Adam Sainz MD LAB BLOOD ORDERABLES Final Resul t Performing Organization Address City/[facility]/ZIP Co de Phone Number [facility] [address] [place] [address], [place] [phone] * Thyroxine free (11/19/2024 5:55 PM EDT) Free T4 0.84 0.70 - 1.80 ng/dL LAB CHEMISTRY METHOD 11/19/2024 8:00 PM EDT [facility] Blood Venous blood specimen / Unknown 11/19/2024 5:55 PM EDT 11/19/2024 6:45 PM EDT us Adam Sainz MD LAB BLOOD ORDERABLES Final Resul t Performing Organization Address City/[facility]/ZIP Co de Phone Number [facility] [address] [place] [address], [place] [phone] from Last 3 Months Insurance MEDICAID - [place]
--- OUTSIDE RECORDS SUMMARY | 2024-12-24 15:06 | XMS_ITS | Encounter Summary ---
Author Organization [facility] Address [address] [place] [address] Care Team Providers Care Channel Rougher Name Role Phone Unavailable Primary Care Provider Unavailabl e Encounter Details Date Type Department Care Team (Late st Contact Info) Description 09/13/2024 Lab Requisition [facility] Lab [address] [place] [address] Adam Sainz MD [address] [place] [address] [address] [place], [place] Encounter for other specified special examinations [...] LAB CHEMISTRY METHOD 09/13/2024 8:44 AM EST [facility] Blood Venous blood specimen / Unknown 09/13/2024 7:17 AM EST 09/13/2024 8:02 AM EST us Adam Sainz MD LAB BLOOD ORDERABLES Final Resul t Performing Organization Address [facility] Co de Phone Number [facility] [address] [place] [address], * Thyroxine free (09/13/2024 7:17 AM EST) Free T4 1.04 0.70 - 1.80 ng/dL LAB CHEMISTRY METHOD 09/13/2024 8:44 AM EST [facility] Blood Venous blood specimen / Unknown 09/13/2024 7:17 AM EST 09/13/2024 8:02 AM EST us Adam Sainz MD LAB BLOOD ORDERABLES Final Resul t Performing Organization Address [facility] de Phone Number [facility] [address] [place] [address], [place] [phone] * Hemoglobin A1c (09/13/2024 7:17 AM EST) [facility] Hemoglobin A1C 5.7 <6.5 % LAB CHEMISTRY METHOD 09/13/2024 12:02 PM EST [facility] Mean Bld Glu Estim. 117 mg/dL LAB CHEMISTRY METHOD 09/13/2024 12:02 PM EST [facility] Blood Venous blood specimen / Unknown 09/13/2024 7:17 AM EST 09/13/2024 8:02 AM EST us Adam Sainz MD LAB BLOOD ORDERABLES Final Resul t Performing Organization Address [facility] Co de Phone Number [facility] [address] [place] [address], documented in this encounter Visit Diagnoses Diagnosis Encounter for other specified special examinations documented in this encounter
--- OUTSIDE RECORDS SUMMARY | 2024-12-24 15:06 | XMS_ITS | Clinical Summary ---
Author Organization [employer] Address [address] [facility] [address] [place] [address] Care Team Providers Care Roof Bolter Operator Name Role Phone Unavailable Primary Care [...] Most Recently Relevant to Health Maintenance Insurance [facility] MEDICAID STAND ADULT
--- OUTSIDE RECORDS SUMMARY | 2024-12-24 15:06 | XMS_ITS | Encounter Summary ---
Author Organization [facility] Address [address] [place] [address] Care Team Providers Care Resume Specialist Name Role Phone Unavailable Primary Care Provider Unavailabl e Encounter Details Date Type Department Care Team (Late st Contact Info) Description 12/24/2024 Lab Requisition [facility] [address] [place] [facility] [place] [address] Adam Sainz MD [address] [place] [address] [address] [place], [place] Hyperlipidemia, unspecified; Hypo-osmolality and hyponatremia; Obesity, [...] LAB CHEMISTRY METHOD 12/24/2024 12:00 PM EDT [facility] Mean Bld Glu Estim. 126 mg/dL LAB CHEMISTRY METHOD 12/24/2024 12:00 PM EDT [facility] Blood Venous blood specimen / Unknown 12/24/2024 7:12 AM EDT 12/24/2024 7:40 AM EDT us Adam Sainz MD LAB BLOOD ORDERABLES Final Resul t Performing Organization Address [facility] Co de Phone Number [facility] [address] [place] [address], [place] [phone] * (ABNORMAL) Ammonia (12/24/2024 7:12 AM EDT) Ammonia 56(H) 11 - 35 mcmol/L LAB CHEMISTRY METHOD 12/24/2024 8:19 AM EDT [facility] Blood Venous blood specimen / Unknown 12/24/2024 7:12 AM EDT 12/24/2024 7:40 AM EDT us Adam Sainz MD LAB BLOOD ORDERABLES Final Resul t Performing Organization Address [facility] de Phone Number [facility] [address] [place] [address], [place] [phone] * Lipid panel with reflex to direct LDL (12/24/2024 7:12 AM EDT) Cholesterol 141 0 - 200 mg/dL LAB CHEMISTRY METHOD 12/24/2024 8:42 AM EDT [facility] Triglycerides 62 0 - 150 mg/dL LAB CHEMISTRY METHOD 12/24/2024 8:42 AM EDT [facility] HDL 50 >=40 mg/dL LAB CHEMISTRY METHOD 12/24/2024 8:42 AM EDT [facility] LDL Calculated 79 0 - 100 mg/dL LAB CHEMISTRY METHOD 12/24/2024 8:42 AM EDT [facility] VLDL Cholesterol Melvin 12.4 mg/dL LAB CHEMISTRY METHOD 12/24/2024 8:42 AM EDT [facility] Non HDL Chol. (LDL+VLDL) 91 <145 mg/dL LAB CHEMISTRY METHOD 12/24/2024 8:42 AM T [facility] Chol/HDL Ratio 2.8 0.0 - 4.4 LAB CHEMISTRY METHOD 12/24/2024 8:42 AM T [facility] Blood Venous blood specimen / Unknown 12/24/2024 7:12 AM EDT 12/24/2024 7:40 AM EDT us Adam Sainz MD LAB BLOOD ORDERABLES Final Resul t [facility] [address] [place] [address], * (ABNORMAL) Comprehensive metabolic panel (12/24/2024 7:12 AM EDT) Sodium 144 133 - 145 mmol/L LAB CHEMISTRY METHOD 12/24/2024 8:42 AM [facility] Potassium 3.7 3.5 - 5.5 mmol/L LAB CHEMISTRY METHOD 12/24/2024 8:42 AM [facility] Chloride 115(H) 96 - 110 mmol/L LAB CHEMISTRY METHOD 12/24/2024 8:42 AM [facility] CO2 21 21 - 32 mmol/L LAB CHEMISTRY METHOD 12/24/2024 8:42 AM [facility] Anion Gap 8 3 - 11 LAB CHEMISTRY METHOD 12/24/2024 8:42 AM [facility] Glucose 95 70 - 100 mg/dL LAB CHEMISTRY METHOD 12/24/2024 8:42 AM [facility] BUN 6 5 - 25 mg/dL LAB CHEMISTRY METHOD 12/24/2024 8:42 AM [facility] Creatinine 0.61 0.50 - 1.10 mg/dL LAB CHEMISTRY METHOD 12/24/2024 8:42 AM [facility] eGFR 120 >=60 mL/min/1. 73m2 LAB CHEMISTRY METHOD 12/24/2024 8:42 AM [facility] Comment:Calculation based on the Chronic Kidney Disease Epidemiology Collaboration (CKD-EPI) equation refit without adjustment for race. BUN/Creatinine Ratio 9.8 LAB CHEMISTRY METHOD 12/24/2024 8:42 AM [facility] Calcium 8.3(L) 8.5 - 10.5 mg/dL LAB CHEMISTRY METHOD 12/24/2024 8:42 AM [facility] AST (SGOT) 11 10 - 42 unit/L LAB CHEMISTRY METHOD 12/24/2024 8:42 AM [facility] ALT (SGPT) 9(L) 10 - 60 unit/L LAB CHEMISTRY METHOD 12/24/2024 8:42 AM [facility] Alkaline Phosphatase 80 42 - 121 unit/L LAB CHEMISTRY METHOD 12/24/2024 8:42 AM [facility] Total Protein 6.0 6.0 - 8.0 g/dL LAB CHEMISTRY METHOD 12/24/2024 8:42 AM [facility] Albumin 3.0(L) 3.2 - 5.0 g/dL LAB CHEMISTRY METHOD 12/24/2024 8:42 AM [facility] Total Bilirubin 0.2 0.0 - 1.4 mg/dL LAB CHEMISTRY METHOD 12/24/2024 8:42 AM [facility] Blood Venous blood specimen / Unknown 12/24/2024 7:12 AM EDT 12/24/2024 7:40 AM EDT Adam Sainz MD LAB BLOOD ORDERABLES Final Resul t [facility] ([facility]) [facility] [address] [place] [address], documented in this encounter Visit Diagnoses Diagnosis Hyperlipidemia, unspecified Hypo-osmolality and hyponatremia Obesity, unspecified documented in this encounter
--- OUTSIDE RECORDS SUMMARY | 2024-12-24 15:07 | XMS_ITS | Encounter Summary ---
Author Organization [facility] Address [address] [place] [address] Care Team Providers Care Solution Engineer Name Role Phone Unavailable Primary Care Provider Unavailabl e Encounter Details Date Type Department Care Team (Late st Contact Info) Description 11/19/2024 Lab Requisition [facility] Lab [address] [place] [address] Adam Sainz MD [address] [place] [address] Dr [address] [place], [place] Hypothyroidism, unspecified Social History Tobacco Use [...] LAB CHEMISTRY METHOD 11/19/2024 8:00 PM EDT [facility] Blood Venous blood specimen / Unknown 11/19/2024 5:55 PM EDT 11/19/2024 6:45 PM EDT us Adam Sainz MD LAB BLOOD ORDERABLES Final Resul t [facility] [address] [place] [address], [place] [phone] * Thyroid stimulating hormone (11/19/2024 5:55 PM EDT) TSH 1.46 0.40 - 4.00 mcIU/mL LAB CHEMISTRY METHOD 11/19/2024 8:00 PM EDT [facility] Blood Venous blood specimen / Unknown 11/19/2024 5:55 PM EDT 11/19/2024 6:45 PM EDT us Adam Sainz MD LAB BLOOD ORDERABLES Final Resul t [facility] [address] [place] [address], [place] [phone] documented in this encounter Visit Diagnoses Diagnosis Hypothyroidism, unspecified documented in this encounter
[2024-12-26 14:14] LABS: Bacterial Vaginosis PCR NEGATIVE (Negative); Candida Group PCR DETECTED (Not Detect); Candida glab krusei PCR NOT DETECTED (Not Detect); Trichomonas vaginalis PCR NOT DETECTED (Not Detect)
[2024-12-26 14:46] LABS: CT PCR NOT DETECTED (Not Detect.); NG PCR NOT DETECTED (Not Detect.)
[2024-12-31 07:42] LABS: HPV Genotype 16 Negative (Negative); HPV Genotype 18 Negative (Negative); HPV High Risk Negative (Negative)
== END 2024-12-24 13:12 | disposition home or self-care (01) ==
LOC: HO.LNP 13:11
PROVIDERS: Visit Provider Advanced Practice Midwife
DX: Z01.419 Encounter for gynecological examination (general) (routine) without abnormal findings (principal); Z87.42 Personal history of other diseases of the female genital tract; N90.810 Female genital mutilation status, unspecified; R35.0 Frequency of micturition; N89.8 Other specified noninflammatory disorders of vagina; N92.6 Irregular menstruation, unspecified
CPT/HCPCS: 81515; 87491; 87591; 87626; 88175; 99395; 99459

== ENCOUNTER 2025-01-28 15:48 | Emergency (ER) | payer MEDICAID, SELFPAY ==
[2025-01-28 15:57] VITALS: BP 118/79; BP 146/82; PULSE 84; RESP 85; TEMP 36.6; O2SAT 100; O2SAT 97; BMI 37.4
--- NOTE | 2025-01-28 16:17 | ED.DENTAL ---
HPI - Dental/Oral General Chief complaint: Dental/Oral Stated complaint: mouth pain , roof of mouth, tongue pain 3days Time Seen by Provider: 01/28/25 16:07 Source: patient Mode of arrival: EMS Limitations: no limitations History of Present Illness ED Provider: HPI Narrative: [facility], reports dental pain, currently takes benzocaine, amoxicillin, Tylenol and ibuprofen, states does not have dental pain at this time but has palate discomfort, anxious about this, no dysphagia, but reports odynophagia. Related Data Home Medications ?Medication ?Instructions ?Recorded ?Confirmed acetaminophen 325 mg capsule 650 mg PO Q4H PRN 08/15/23 12/24/24 atorvastatin calcium PO BEDTIME 08/15/23 12/24/24 carboxymethylcellulose sodium 0.5 1 drp ophthalmic (eye) BID 08/15/23 12/24/24 % eye drops (Refresh Tears) fluoxetine 20 mg tablet 20 mg PO DAILY 08/15/23 12/24/24 ibuprofen 200 mg tablet 400 mg PO Q8H 08/15/23 12/24/24 lactulose 10 gram/15 mL oral 20 g PO BID 08/15/23 12/24/24 solution levothyroxine 75 mcg capsule 75 mcg PO DAILY 08/15/23 12/24/24 metoprolol succinate 25 mg 25 mg PO BID 08/15/23 12/24/24 tablet,extended release 24 hr naltrexone microspheres 380 mg 380 mg IM Q4W 08/15/23 12/24/24 intramuscular suspension,extended release omeprazole 20 mg capsule,delayed 20 mg PO DAILY 08/15/23 12/24/24 release polyethylene glycol 3350 17 17 g PO DAILY 08/15/23 12/24/24 gram/dose oral powder (Miralax) quetiapine 300 mg tablet 300 mg PO BEDTIME 08/15/23 12/24/24 rifaximin 550 mg tablet 550 mg PO BID 08/15/23 12/24/24 sennosides 8.6 mg tablet (senna) 8.6 mg PO BID 08/15/23 12/24/24 sodium phosphates 19 gram-7 197 ml SC DAILY 08/15/23 12/24/24 gram/118 mL enema (Fleet Enema) ondansetron HCl 4 mg tablet 4 mg PO Q8H 12/24/24 12/24/24 Previous Rx's ?Medication ?Instructions ?Recorded miconazole nitrate 2 % vaginal 1 appful vaginal BEDTIME Vaginal 12/24/24 cream (Miconazole-7) itch 7 days #45 grams chlorhexidine gluconate 0.12 % 15 ml mucous membrane TID #1,500 mL 01/28/25 mouthwash Allergies Allergy/AdvReac Type Severity Reaction Status Date / Time No Known Allergies Allergy Verified 01/28/25 16:04 Review of Systems Constitutional: Constitutional: Reports as per [facility] Past Medical History Medical History (Updated 01/28/25 @ 16:24 by Abel Borden DO) Pre-diabetes Alcohol dependence Delusional disorder Amenorrhea Hidradenitis Uterine scar from previous surgery 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 Depression Nondisplaced apophyseal fracture of femur Obesity Insomnia Constipation Anxiety disorder Brain injury Surgical History Hx of brain surgery Hx of cholecystectomy Family History Family History (Updated 12/24/24 @ 13:29 by Estefani Mireles CMA) Mother Mental and behavioral problem Social History Social History (Updated 12/24/24 @ 13:30 by Estefani Mireles CMA) Household Members Other:: [facility] Alcohol intake: never Patient Tobacco Use Status: Never used Tobacco Use of substances other than those prescribed or required for medical reasons: No Do you have a plan to hurt others: No Plan Patient : No Current occupational status: disabled Sexual orientation: Straight/Heterosexual Gender identity: Female Physical Exam Vital Signs: Vital Signs: Last Vital Signs Temp 98 F 01/28/25 15:57 Resp 85 H 01/28/25 15:57 BP 118/79 01/28/25 15:57 Pulse Ox 100 01/28/25 15:57 O2 Del Method Room Air 01/28/25 15:57 BMI result Body Mass Index 37.4 Const: Other: Gen: ?Appears slightly older than stated age HEENT: Uvula midline, negative Tinel sign over her teeth, no obvious cavities, floor of the mouth is soft, there are no exudates or lesions along her buccal mucosa or the tongue, no lesions of her hard or soft palate Neck: Supple, no LAD CV: RRR, no obvious murmurs appreciated Skin: Warm, dry, intact, Neuro: ?Alert and oriented x3, moving upper and lower extremities symmetrically, no obvious facial asymmetry noted Medical Decision Making Medical Decision Making MDM Narrative: Oropharyngeal examination is completely unremarkable, she is currently antibiotics, anti-inflammatories and Tylenol, we will recommend chlorhexidine mouthwash, and referral to dentist, there was no evidence that patient requires any different antibiotics or there is any evidence that there is ongoing deep space infection of the oropharynx necessitating CT of the neck Differential Diagnosis Differential Diagnoses: The differential diagnosis associated with the presentation includes Thrush, dental pain, peritonsillar abscess, tonsillitis, aphthous ulcers, Discharge Plan Discharge Clinical Impression: Odynophagia, Chronic orofacial pain Patient Disposition: Home, Self-Care Additional Instructions: Swish and spit with chlorhexidine mouthwash 3 times a day, if you have a dental clinic to follow up with please do, no obvious infection on exam, finish the medications you have been taking No other treatments that I can see for the ED setting Prescriptions: New chlorhexidine gluconate 0.12 % mouthwash 15 ml mucous membrane TID Qty: 1500 0RF Rx Instructions: Swish and spit 3 times a day No Action acetaminophen 325 mg capsule 650 mg PO Q4H PRN atorvastatin calcium 10 mg tablet PO BEDTIME Fleet Enema 19-7 gram/118 mL enema 197 ml SC DAILY fluoxetine 20 mg tablet 20 mg PO DAILY ibuprofen 200 mg tablet 400 mg PO Q8H lactulose 10 gram/15 mL solution 20 g PO BID levothyroxine 75 mcg capsule 75 mcg PO DAILY metoprolol succinate 25 mg tablet extended release 24 hr 25 mg PO BID polyethylene glycol 3350 [Miralax] 17 gram/dose powder 17 g PO DAILY naltrexone microspheres 380 mg suspension,extended rel recon 380 mg IM Q4W omeprazole 20 mg capsule,delayed release(DR/EC) 20 mg PO DAILY quetiapine 300 mg tablet 300 mg PO BEDTIME carboxymethylcellulose sodium [Refresh Tears] 0.5 % drops 1 drp ophthalmic (eye) BID rifaximin 550 mg tablet 550 mg PO BID sennosides [senna] 8.6 mg tablet 8.6 mg PO BID ondansetron HCl 4 mg tablet 4 mg PO Q8H miconazole nitrate [Miconazole-7] 2 % cream 1 appful vaginal BEDTIME 7 Days Qty: 45 2RF Rx Instructions: Patient may use when she perceives that she has vaginal itching she may use it internally if she has a lots of very severe itching and discharge or just externally to the spot where she is itchy she may use it PRN. Print Language: Greenlandic
[2025-01-28] MEDS: Mag&Al/Sim/Diphenhyd/Lidocaine 10 ML ORAL.SUSP PO (17:45)
--- NOTE | 2025-01-28 18:18 | PC.NURSE ---
Nurse to Nurse report given to Teena LEUNG at [facility] Teena Bond RN asked for prescription to be sent to [facility] in [place], [place]? since that is the current Pharmacy they use.
--- NOTE | 2025-01-28 18:24 | PC.NURSE ---
Provider notified in change in pharmacy. Rx sent to new pharmacy provided by [facility] from [facility].
[2025-01-28 18:25] VITALS: BP 110/72; PULSE 80; RESP 16; TEMP 36.8; O2SAT 100
[2025-01-28 19:01] VITALS: BP 110/72; PULSE 80; RESP 16; TEMP 36.8; O2SAT 100
== END 2025-01-28 19:03 | disposition home or self-care (01) ==
PROVIDERS: Emergency Provider Emergency Medicine
DX: K08.89 Other specified disorders of teeth and supporting structures (principal); K14.6 Glossodynia; R51.9 Headache, unspecified; Z79.899 Other long term (current) drug therapy
CPT/HCPCS: 99283; 99284

== ENCOUNTER 2025-02-10 09:49 | Outpatient (REF) | payer MEDICAID, SELFPAY ==
--- NOTE | ~2025-02-10 | MR_ITS ---
EXAMINATION: MR BRAIN WITHOUT CONTRAST CLINICAL INFORMATION: Headache. Multiple paresthesia. Visual disturbances. COMPARISON: None available. TECHNIQUE: MRI of the brain was obtained using routine sequences without contrast. FINDINGS: Motion artifact. No restricted diffusion. No acute intracranial hemorrhage, mass effect, midline shift, hydrocephalus or herniation. Morel-white matter differentiation is normal. Inadequate acquisition of the susceptibility sequences. Posterior cranial fossa contents demonstrated no signal abnormality or mass effect. Flow-void signal within the main cerebral vessels is normal. Sellar/suprasellar region demonstrated no signal abnormality or gross masses. Craniocervical junction demonstrates normal position of the cerebellar tonsils. There is a 1.7 cm lobulated hyperintense T2 FLAIR nonprotected signal mass in the anterior superficial right parotid gland. MR/MR head/brain wo con IMPRESSION: Limited by patient's motion. No acute or structural brain abnormality. 1.7 cm mass, superficial right parotid gland. 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 Electronically signed by: Steve Plummer MD 02/10/2025 10:55 AM EDT
--- OUTSIDE RECORDS SUMMARY | 2025-02-10 10:25 | XMS_ITS | Clinical Summary ---
Author Organization [employer] Address [address] [facility] [address] [place] [address] Care Team Providers Care Alliance Manager Name Role Phone Unavailable Primary Care [...] 1989 Depression Screening 1989 HIV Screening 1989 Lipid Panel 1989 SDOH Screening 1989 Disability Screening 1989 Alcohol/Substance Use Screening 2001 Tobacco Screening 2001 Family Planning (PISQ) 2004 Hepatitis C Screening 2007 DTaP/Tdap/Td Vaccines (1 - Tdap) 2008 Hepatitis B Vaccines (1 of 3 - 19+ 3-dose series) 2008 Pap Smear 2010 Cervical Cancer Screening 2019 HPV/Cotest 2019 COVID-19 Vaccine (1 - 2023-2 5 season) 2024 Dental X-Ray: [facility] 05/22/2024 05/21/2023 Influenza Vaccine (Season Ended) 2025 Zoster Vaccines (1 of 2) 2039 RSV [...] Years) and At-Risk Patients (6 to 49) Years Aged Out No longer eligi ble based [...] Most Recently Relevant to Health Maintenance Insurance [facility] MEDICAID STAND ADULT
== END 2025-02-10 09:50 | disposition home or self-care (01) ==
LOC: HO.MRI 09:49
PROVIDERS: PCP Hospitalist; Visit Provider Hospitalist
DX: R20.2 Paresthesia of skin (principal)
CPT/HCPCS: 70551

== ENCOUNTER → 2025-02-10 10:09 | Outpatient (BNV) | payer MEDICAID, SELFPAY | PROVIDERS: PCP Hospitalist; Visit Provider Radiology Diagnostic Radiology | DX: D11.0 Benign neoplasm of parotid gland (principal) | CPT/HCPCS: 70551 ==